=== PATIENT | male | born 1985 | race Caucasian/White ===

== ENCOUNTER 2020-02-11 09:08 | Emergency (ER) | payer OTHER ==
[~2020-02-11] VITALS: Ht 177.8 cm; Wt 100.0 kg
--- NOTE | 2020-02-11 09:39 | PHYS DOC ---
Past Medical History Past Medical History: No Pertinent History Past Surgical History: Tonsillectomy Smoking Status: Never Smoker Additional Information: chews Alcohol Use: None Drug Use: None General Adult EDM: Chief Complaint: LACERATION/AVULSION HPI: HPI: 34-year-old male presents emergency department today after injuring his left knee with a chainsaw. He was walking up a hill when he accidentally slipped and fell and injured his left knee with a chainsaw. He has a throbbing aching pain in that area and denies any other injuries. The pain is nonradiating without alleviating factors. He was seen by paramedics who placed a gauze overlying the wound and brought him in for evaluation. Review of systems negative for chest pain shortness of breath head injury loss of consciousness neck pain. He denies any other traumatic injuries. All other review of systems negative. ED course: A 34-year-old male presenting with a chainsaw injury to the left leg/knee area. X-ray is unremarkable. No foreign bodies on inspection of the wound. The wound was cleansed out with large volume moderate pressure saline and then cleaned out with Betadine. Stitches were placed reapproximating the wound. We will give the patient an antibiotic prophylactically. Heart Score: Risk Factors: Risk Factors: DM, Current or recent (<one month) smoker, HTN, HLP, family history of CAD, obesity. Risk Scores: Score 0 - 3: 2.5% MACE over next 6 weeks - Discharge Home Score 4 - 6: 20.3% MACE over next 6 weeks - Admit for Clinical Observation Score 7 - 10: 72.7% MACE over next 6 weeks - Early Invasive Strategies Physical Exam: PE: Constitutional: Well developed, well nourished, no acute distress, non-toxic appearance. [] HENT: Normocephalic, atraumatic, bilateral external ears normal, oropharynx moist, no oral exudates, nose normal. [] Eyes: PERRLA, EOMI, conjunctiva normal, no discharge. [] Neck: Normal range of motion, no tenderness, supple, no stridor. [] Cardiovascular:Heart rate regular rhythm, no murmur [] Lungs & Thorax: Bilateral breath sounds clear to auscultation [] Abdomen: Bowel sounds normal, soft, no tenderness, no masses, no pulsatile masses. [] Skin: Warm, dry, no erythema, no rash. [] Back: No tenderness, no CVA tenderness. [] Extremities: The patient's left knee has a 5 to 6 cm laceration overlying without any injury to the patella or tendons. The wound on the medial side is relatively deep without any muscle or tendon involvement. No tendon injuries. No foreign bodies present. Venous bleeding easily controlled. Good lighting. Knee was examined under range of motion of the joint. No other injuries to the extremity. Palpable pulse with 2-second cap refill. Normal motor and sensory function of the foot below. The remainder the extremities are nontender with normal range of motion of joints and without any traumatic injuries. Neurovascularly intact. Neurologic: Alert and oriented X 3, normal motor function, normal sensory function, no focal deficits noted. [] Psychologic: Affect normal, judgement normal, mood normal. [] EKG: EKG: [] Radiology/Procedures: Radiology/Procedures: [] Course & Med Decision Making: Course & Med Decision Making Pertinent Labs and Imaging studies reviewed. (See chart for details) [] Dragon Disclaimer: Dragon Disclaimer: This electronic medical record was generated, in whole or in part, using a voice recognition dictation system. Departure Departure Impression: Primary Impression: Knee laceration Disposition: 01 HOME, SELF-CARE Condition: STABLE Patient Instructions: Laceration Care, Adult Additional Instructions: In 14 days we will have you be reevaluated for the potential to have your sutures removed. It may be the case that you need the sutures removed later than this date. It will be dependent on the evaluation at that time. In the interim we will give you an antibiotic to try to prevent infection. Scripts Cephalexin (KEFLEX) 250 Mg Capsule 1 CAP PO QID, #28 CAP Prov: WENDIE SULLIVAN MD 02/11/20 Justicifation of Admission Dx: Justifications for Admission: Justification of Admission Dx: N/A Laceration Repair Lac Repair Indication: laceration Procedure: The patient was placed in the appropriate position and anesthesia around the left knee 1%. The area was then cleaned with pressurized saline. The laceration was repaired using 17 sutures in a simple interupted fashion and one horizontal mattress in the medial deeper portion of the wound. The wound area was then dressed with non adherent dressing. Total repaired wound length: 6cm. Other Items: The patient tolerated the procedure well. Complications: none. WENDIE SULLIVAN MD Feb 11, 2020 09:39
[2020-02-11] MEDS ORDERED: ACETAMINOPHEN 325 MG TABLET. PO ONE (09:45)
--- NOTE | 2020-02-11 10:17 | RAD ---
Examination: KNEE LEFT 3V History: left knee injury, lac from chainsaw anterior left knee /pain Comparison/Correlation: None Findings: Total 3 images of the left knee were obtained by portable technique. Soft tissue laceration defect at the anterior aspect of the patella lower pole is seen corresponding to reported laceration injury. No basic foreign body identified. Joint spaces are normal. No fracture or bone destruction. No degenerative change. Soft tissue gas is also seen about the distal femoral metaphyseal region on frontal view. Impression: Soft tissue laceration. No fracture. Electronically signed by: Dylan Whitney MD (02/11/2020 10:14 AM) [id number]
[2020-02-11] MEDS ORDERED: DIPH,PERTUSS(ACELL),TET VAC/PF 0.5 ML SYRINGE. VAX IM ONE (10:30)
[2020-02-11] MEDS ORDERED: LIDOCAINE 1% Multi-Dose 20 ML VIAL. ONE (10:55)
[2020-02-11] MEDS ORDERED: LIDOCAINE 1% Multi-Dose 20 ML VIAL. ID ONE (11:00)
[2020-02-11] MEDS ORDERED: CEPH-263 PO (11:36)
[2020-02-11 11:39] VITALS: BP 133/79
== END 2020-02-11 12:20 | disposition home or self-care (01) ==
LOC: ER 09:08 → EDBD 09:08 → ER 12:20
DX: S81.012A Laceration without foreign body, left knee, initial encounter (principal); F17.220 Nicotine dependence, chewing tobacco, uncomplicated; W01.0XXA Fall on same level from slipping, tripping and stumbling without subsequent striking against object, initial encounter; Y93.01 Activity, walking, marching and hiking; Y92.828 Other wilderness area as the place of occurrence of the external cause; Y99.8 Other external cause status
CPT/HCPCS: 12002; 73562; 90471; 90715; 99285; J3490